=== PATIENT | male | born 1955 | race African-American/Black ===

== ENCOUNTER 2019-03-31 06:00 | Inpatient (IN) ==
[2019-03-26 10:16] LABS: Basophils % 0.2 % (0.0-0.8); Eosinophils % 0.7 % (0.00-10.9); Hematocrit 49.4 VOL% (42.0-52.0); Hemoglobin 16.6 GM/DL (14.0-18.0); Immature Granulocytes % 0.7 %; Immature Granulocytes Absolute 0.03 #; Lymphocytes # 1.3 10*3/uL (1.4-4.0); Lymphocytes % 28.9 % (21.2-54.2); Mean Corpuscular HGB Conc 33.6 GM/DL (32-36); Mean Corpuscular Volume 97.4 FL (87-102); Mean Platelet Volume 9.7 FL (9.6-12.0); Monocytes % 13.5 % (1.7-12.7); Platelet Count 214 T/CUMM (130-400); Red Blood Count 5.07 MC/CUMM (3.8-5.5); Red Cell Distribution Width 14.3 % (9.3-17.3); White Blood Count 4.4 T/CUMM (4-12)
[2019-03-26 10:24] LABS: INR 0.9; PT Patient Result 10.1 SECS; Partial Thromboplastin Time 26.8 SECS (0-40)
[2019-03-26 10:40] LABS: Osmolality,Calculated 275.5 MOS/KG (273-304)
[2019-03-26 11:10] LABS: Apearance,Urine CLEAR (Clear); Bilirubin,Urine Negative (Negative); Blood, Urine Negative (Negative); Glucose,Urine (UA) Negative (Negative); Hyaline Casts,Urine 1 /LPF (0-3); Ketones,Urine 5 mg/dL (Negative); Mucus,Urine Occasional /LPF (Occasional); Nitrite,Urine Negative (Negative); Protein,Urine Negative; RBC,Urine 1 /HPF (0-4); Urine Color Yellow (Yellow); Urine Specific Gravity 1.023 (1.001-1.035)
[~2019-03-31 06:00] MED LIST: SODIUM CHLORIDE 0.9% 1,000 ML IV PRN
[2019-04-09] MEDS ORDERED: DIAZEPAM 5 MG TABLET PO ONE (06:00)
[2019-04-09] MEDS ORDERED: FAMOTIDINE 20 MG TABLET PO ONE (06:00)
[2019-04-09] MEDS ORDERED: ALBUTEROL/IPRATROPIUM 3 ML NEB RESP TX ONE (06:00)
[2019-04-09] MEDS ORDERED: TISSUE ADHESIVE 1 EACH APPLICATOR TOP ONE (06:33)
[2019-04-09] MEDS ORDERED: CEFUROXIME 1,500 MG VIAL ONE (06:43)
[2019-04-09] MEDS ORDERED: FAMOTIDINE 20 MG TABLET ONE (06:43)
[2019-04-09] MEDS ORDERED: DIAZEPAM 5 MG TABLET ONE (06:43)
[2019-04-09] MEDS ORDERED: CEFUROXIME INJ 1,500 MG in SYRINGE 1 EACH IV ONE (06:51)
[2019-04-09] MEDS ORDERED: LACTATED RINGERS 1,000 ML IV SCH (07:00)
[2019-04-09] MEDS: VANCOMYCIN INJ 1,000 MG in SODIUM CHLORIDE 0.9% 250 ML IV SCH ×2 (08:00→21:57)
[2019-04-09 12:18] LABS: Apearance,Urine CLEAR (Clear); Bacteria,Urine Occasional /HPF (Few); Bilirubin,Urine Negative (Negative); Blood, Urine Negative (Negative); Glucose,Urine (UA) Negative (Negative); Hyaline Casts,Urine 3 /LPF (0-3); Ketones,Urine Negative (Negative); Mucus,Urine Occasional /LPF (Occasional); Nitrite,Urine Negative (Negative); Protein,Urine Negative; RBC,Urine 1 /HPF (0-4); Urine Color Yellow (Yellow); Urine Specific Gravity 1.012 (1.001-1.035); Urine Urobilinogen < 2.0 EU/DL (0.2-1.0)
[2019-04-09] MEDS ORDERED: VANCOMYCIN 500 MG VIAL ONE (12:21)
[2019-04-09] MEDS ORDERED: ONDANSETRON 4 MG/2 ML VIAL IV PRN (13:17)
[2019-04-09] MEDS ORDERED: ePHEDrine 50 MG/ML AMP ONE (13:37)
[2019-04-09] MEDS ORDERED: MIDAZOLAM 2 MG/2 ML VIAL ONE (13:37)
[2019-04-09] MEDS ORDERED: SEVOFLURANE 1 UNIT/15 MINUTE INH ONE (13:38)
[2019-04-09] MEDS ORDERED: CALCIUM CHLORIDE 1,000 MG/10 ML VIAL IV ONE (13:38)
[2019-04-09] MEDS ORDERED: NEOSTIGMINE 10 MG/10 ML VIAL ONE (13:39)
[2019-04-09] MEDS ORDERED: ROCURONIUM 100 MG/10 ML VIAL IV ONE (13:39)
[2019-04-09] MEDS ORDERED: PROPOFOL 200 MG/20 ML VIAL IV ONE (13:39)
[2019-04-09] MEDS ORDERED: PHENYLEPHRINE 1 MG/10 ML SYRINGE IV ONE (13:39)
[2019-04-09] MEDS ORDERED: SODIUM CHLORIDE 0.9% 1,000 ML IV ONE (13:40)
[2019-04-09] MEDS ORDERED: PHENYLEPHRINE DRIP 20 MG/250 ML PREMIX IV ONE (13:40)
[2019-04-09] MEDS ORDERED: LACTATED RINGERS 2,000 ML IV ONE (13:40)
[2019-04-09] MEDS ORDERED: ETOMIDATE 40 MG/20 ML VIAL IV ONE (13:44)
[2019-04-09] MEDS ORDERED: HEPARIN/NACL 0.9% 2 UNITS/ML 500 ML IV ONE (13:44)
[2019-04-09 13:49] LABS: Basophils % 0.1 % (0.0-0.8); Hematocrit 46.1 VOL% (42.0-52.0); Hemoglobin 14.7 GM/DL (14.0-18.0); Immature Granulocytes % 0.5 %; Immature Granulocytes Absolute 0.08 #; Lymphocytes # 1.1 10*3/uL (1.4-4.0); Lymphocytes % 6.6 % (21.2-54.2); Mean Corpuscular HGB Conc 31.9 GM/DL (32-36); Mean Corpuscular Volume 98.1 FL (87-102); Mean Platelet Volume 9.4 FL (9.6-12.0); Monocytes % 10.6 % (1.7-12.7); Neutrophils % 82.2 % (38.7-73.9); Platelet Count 212 T/CUMM (130-400); Red Cell Distribution Width 15.6 % (9.3-17.3); White Blood Count 16.1 T/CUMM (4-12)
[2019-04-09] MEDS ORDERED: ALBUMIN 5% 12.5 GM/250 ML VIAL IV ONE (14:07)
[2019-04-09 14:13] LABS: Calcium 8.6 MG/DL (8.5-10.1); Osmolality,Calculated 284.3 MOS/KG (273-304)
[2019-04-09] MEDS ORDERED: SODIUM CHLORIDE 0.9% 1,000 ML IV PRN (14:22)
[2019-04-09] MEDS: ALBUMIN 5% 12.5 GM in PREMIX 1 EACH IV SCH ×2 (14:33→23:11)
[2019-04-09] MEDS: GABAPENTIN 100 MG CAPSULE PO SCH ×2 (14:53→21:57)
[2019-04-09] MEDS: KETOROLAC 15 MG/1 ML VIAL IV SCH ×2 (14:55→20:40)
[2019-04-09] MEDS: ACETAMINOPHEN INJ 1,000 MG in PREMIX 1 EACH IV SCH (18:19)
[2019-04-10] MEDS: KETOROLAC 15 MG/1 ML VIAL IV SCH ×4 (01:40→20:31)
[2019-04-10] MEDS: ACETAMINOPHEN INJ 1,000 MG in PREMIX 1 EACH IV SCH (01:43)
[2019-04-10 04:42] LABS: Basophils % 0.1 % (0.0-0.8); Hematocrit 43.1 VOL% (42.0-52.0); Hemoglobin 14.2 GM/DL (14.0-18.0); Immature Granulocytes % 0.5 %; Immature Granulocytes Absolute 0.05 #; Lymphocytes # 0.9 10*3/uL (1.4-4.0); Lymphocytes % 9.1 % (21.2-54.2); Mean Corpuscular HGB Conc 32.9 GM/DL (32-36); Mean Corpuscular Volume 94.5 FL (87-102); Mean Platelet Volume 9.9 FL (9.6-12.0); Neutrophils % 79.3 % (38.7-73.9); Platelet Count 156 T/CUMM (130-400); Red Blood Count 4.56 MC/CUMM (3.8-5.5); Red Cell Distribution Width 16.2 % (9.3-17.3); White Blood Count 9.4 T/CUMM (4-12)
[2019-04-10 04:59] LABS: Calcium 8.2 MG/DL (8.5-10.1); Osmolality,Calculated 276.7 MOS/KG (273-304)
[2019-04-10] MEDS: VANCOMYCIN INJ 1,000 MG in SODIUM CHLORIDE 0.9% 250 ML IV SCH ×3 (06:44→20:33)
[2019-04-10] MEDS: ENOXAPARIN 40 MG/0.4 ML SYRINGE SUBCUT SCH (07:55)
[2019-04-10] MEDS: ACETAMINOPHEN 500 MG TABLET PO SCH ×3 (07:55→18:26)
[2019-04-10] MEDS: ALBUMIN 5% 12.5 GM in PREMIX 1 EACH IV SCH ×2 (08:00→14:00)
[2019-04-10] MEDS: CELECOXIB 200 MG CAPSULE PO SCH ×2 (09:20→20:33)
[2019-04-10] MEDS: PANTOPRAZOLE 40 MG VIAL IV SCH (09:20)
[2019-04-10] MEDS: GABAPENTIN 100 MG CAPSULE PO SCH ×3 (09:20→20:32)
[2019-04-10] MEDS ORDERED: MELOXICAM 7.5 MG TABLET PO PRN (14:12)
[2019-04-10] MEDS ORDERED: CETIRIZINE 10 MG TABLET PO PRN (14:12)
[2019-04-10] MEDS: traMADol 50 MG TABLET PO PRN (15:20)
[2019-04-10] MEDS: ALBUTEROL 2.5 MG/3 ML NEB RESP TX SCH (20:01)
[2019-04-11] MEDS: ACETAMINOPHEN 500 MG TABLET PO SCH ×3 (01:00→14:27)
[2019-04-11] MEDS: KETOROLAC 15 MG/1 ML VIAL IV SCH ×2 (01:00→09:44)
[2019-04-11 05:05] LABS: Basophils % 0.2 % (0.0-0.8); Eosinophils % 0.1 % (0.00-10.9); Hematocrit 40.6 VOL% (42.0-52.0); Hemoglobin 13.2 GM/DL (14.0-18.0); Immature Granulocytes % 0.5 %; Immature Granulocytes Absolute 0.06 #; Lymphocytes # 0.9 10*3/uL (1.4-4.0); Lymphocytes % 8.3 % (21.2-54.2); Mean Corpuscular HGB Conc 32.5 GM/DL (32-36); Mean Corpuscular Volume 96.9 FL (87-102); Mean Platelet Volume 10.3 FL (9.6-12.0); Monocytes % 8.3 % (1.7-12.7); Neutrophils % 82.6 % (38.7-73.9); Platelet Count 152 T/CUMM (130-400); Red Blood Count 4.19 MC/CUMM (3.8-5.5)
[2019-04-11 05:39] LABS: Platelet Estimate Decreased
[2019-04-11 05:44] LABS: Calcium 8.2 MG/DL (8.5-10.1); Osmolality,Calculated 275.7 MOS/KG (273-304)
[2019-04-11] MEDS: ENOXAPARIN 40 MG/0.4 ML SYRINGE SUBCUT SCH (06:42)
[2019-04-11] MEDS: ALBUTEROL 2.5 MG/3 ML NEB RESP TX SCH (07:19)
[2019-04-11] MEDS ORDERED: ALBUTEROL/IPRATROPIUM 3 ML NEB RESP TX SCH (09:00)
[2019-04-11] MEDS: PANTOPRAZOLE 40 MG VIAL IV SCH (09:45)
[2019-04-11] MEDS: OMEGA 3 ACID ETHYL ESTERS 1 GM CAPSULE PO SCH (09:45)
[2019-04-11] MEDS: FAMOTIDINE 20 MG TABLET PO SCH ×2 (09:46→20:59)
[2019-04-11] MEDS: CELECOXIB 200 MG CAPSULE PO SCH ×2 (09:46→20:59)
[2019-04-11] MEDS: ASPIRIN EC 81 MG TABLET PO SCH (09:46)
[2019-04-11] MEDS: GABAPENTIN 100 MG CAPSULE PO SCH ×3 (09:46→20:59)
[2019-04-11] MEDS ORDERED: ACETYLCYSTEINE 20% 800 MG/4 ML VIAL RESP TX ONE (09:58)
[2019-04-11] MEDS ORDERED: KETOROLAC 15 MG/1 ML VIAL IV SCH (10:00)
[2019-04-11] MEDS: ALBUTEROL/IPRATROPIUM 3 ML NEB RESP TX SCH ×3 (11:10→19:25)
[2019-04-11] MEDS: LEVALBUTEROL 0.31 MG/3 ML NEB RESP TX SCH ×2 (11:10→15:15)
[2019-04-11] MEDS: FLUTICASONE 50 MCG NASAL SPRAY 16 GM BOTTLE BOTH NARES SCH (11:28)
[2019-04-11] MEDS ORDERED: ACETAMINOPHEN 500 MG TABLET PO PRN (14:26)
[2019-04-12] MEDS: ALBUTEROL/IPRATROPIUM 3 ML NEB RESP TX SCH ×4 (01:21→19:17)
[2019-04-12] MEDS: LEVALBUTEROL 0.31 MG/3 ML NEB RESP TX SCH ×6 (02:46→19:17)
[2019-04-12 05:15] LABS: Basophils % 0.1 % (0.0-0.8); Eosinophils # 0.1 10*3/uL (0.0-0.87); Eosinophils % 0.5 % (0.00-10.9); Hematocrit 39.5 VOL% (42.0-52.0); Hemoglobin 12.7 GM/DL (14.0-18.0); Immature Granulocytes % 0.6 %; Immature Granulocytes Absolute 0.07 #; Lymphocytes % 8.8 % (21.2-54.2); Mean Corpuscular HGB Conc 32.2 GM/DL (32-36); Mean Corpuscular Volume 96.8 FL (87-102); Mean Platelet Volume 10.6 FL (9.6-12.0); Monocytes % 10.5 % (1.7-12.7); Neutrophils % 79.5 % (38.7-73.9); Platelet Count 156 T/CUMM (130-400); Red Blood Count 4.08 MC/CUMM (3.8-5.5); Red Cell Distribution Width 15.7 % (9.3-17.3); White Blood Count 10.8 T/CUMM (4-12)
[2019-04-12 05:26] LABS: Calcium 8.5 MG/DL (8.5-10.1); Osmolality,Calculated 273.8 MOS/KG (273-304)
[2019-04-12] MEDS: CELECOXIB 200 MG CAPSULE PO SCH ×2 (08:08→20:22)
[2019-04-12] MEDS: GABAPENTIN 100 MG CAPSULE PO SCH ×3 (08:08→20:22)
[2019-04-12] MEDS: ASPIRIN EC 81 MG TABLET PO SCH (08:08)
[2019-04-12] MEDS: OMEGA 3 ACID ETHYL ESTERS 1 GM CAPSULE PO SCH (08:08)
[2019-04-12] MEDS: traMADol 50 MG TABLET PO PRN (08:08)
[2019-04-12] MEDS: PANTOPRAZOLE 40 MG VIAL IV SCH (08:09)
[2019-04-12] MEDS: FAMOTIDINE 20 MG TABLET PO SCH ×2 (08:09→20:22)
[2019-04-12] MEDS: ENOXAPARIN 40 MG/0.4 ML SYRINGE SUBCUT SCH (08:10)
[2019-04-12] MEDS: FLUTICASONE 50 MCG NASAL SPRAY 16 GM BOTTLE BOTH NARES SCH (09:01)
[2019-04-13] MEDS: LEVALBUTEROL 0.31 MG/3 ML NEB RESP TX SCH ×5 (00:48→15:00)
[2019-04-13] MEDS: ALBUTEROL/IPRATROPIUM 3 ML NEB RESP TX SCH ×2 (00:48→19:14)
[2019-04-13] MEDS: ENOXAPARIN 40 MG/0.4 ML SYRINGE SUBCUT SCH (08:47)
[2019-04-13] MEDS: ASPIRIN EC 81 MG TABLET PO SCH (08:49)
[2019-04-13] MEDS: CELECOXIB 200 MG CAPSULE PO SCH ×2 (09:29→21:11)
[2019-04-13] MEDS: FLUTICASONE 50 MCG NASAL SPRAY 16 GM BOTTLE BOTH NARES SCH (09:29)
[2019-04-13] MEDS: OMEGA 3 ACID ETHYL ESTERS 1 GM CAPSULE PO SCH (09:29)
[2019-04-13] MEDS: FAMOTIDINE 20 MG TABLET PO SCH ×2 (09:30→21:11)
[2019-04-13] MEDS: GABAPENTIN 100 MG CAPSULE PO SCH ×3 (09:30→21:11)
[2019-04-13] MEDS: PANTOPRAZOLE 40 MG VIAL IV SCH (10:20)
[2019-04-14] MEDS: ALBUTEROL/IPRATROPIUM 3 ML NEB RESP TX SCH ×4 (00:20→19:36)
[2019-04-14] MEDS ORDERED: MEPERIDINE 50 MG/1 ML VIAL IM ONE (07:00)
[2019-04-14] MEDS ORDERED: PROMETHAZINE 25 MG/1 ML VIAL IM ONE (07:00)
[2019-04-14] MEDS ORDERED: MIDAZOLAM 2 MG/2 ML VIAL ONE (07:29)
[2019-04-14] MEDS ORDERED: MIDAZOLAM 2 MG/2 ML VIAL IV ONE (07:30)
[2019-04-14] MEDS ORDERED: LIDOCAINE 2% 20 ML VIAL RESP TX ONE (07:30)
[2019-04-14] MEDS ORDERED: LIDOCAINE 2% VISCOUS 100 ML BOTTLE SWISH/SPIT ONE (07:30)
[2019-04-14] MEDS ORDERED: LIDOCAINE 1% 20 ML VIAL MISC INJ ONE (07:30)
[2019-04-14] MEDS: ASPIRIN EC 81 MG TABLET PO SCH (10:08)
[2019-04-14] MEDS: PANTOPRAZOLE 40 MG VIAL IV SCH (10:08)
[2019-04-14] MEDS: OMEGA 3 ACID ETHYL ESTERS 1 GM CAPSULE PO SCH (10:08)
[2019-04-14] MEDS: FAMOTIDINE 20 MG TABLET PO SCH ×2 (10:08→20:33)
[2019-04-14] MEDS: CELECOXIB 200 MG CAPSULE PO SCH ×2 (10:08→20:33)
[2019-04-14] MEDS: GABAPENTIN 100 MG CAPSULE PO SCH ×3 (10:08→20:33)
[2019-04-14] MEDS: ENOXAPARIN 40 MG/0.4 ML SYRINGE SUBCUT SCH (10:12)
[2019-04-14] MEDS: FLUTICASONE 50 MCG NASAL SPRAY 16 GM BOTTLE BOTH NARES SCH (10:14)
[2019-04-15] MEDS: ALBUTEROL/IPRATROPIUM 3 ML NEB RESP TX SCH ×4 (00:17→18:58)
[2019-04-15] MEDS: ENOXAPARIN 40 MG/0.4 ML SYRINGE SUBCUT SCH (11:05)
[2019-04-15] MEDS: ASPIRIN EC 81 MG TABLET PO SCH (11:06)
[2019-04-15] MEDS: DOCUSATE SODIUM 100 MG CAPSULE PO SCH ×2 (11:06→20:56)
[2019-04-15] MEDS: FLUTICASONE 50 MCG NASAL SPRAY 16 GM BOTTLE BOTH NARES SCH (11:06)
[2019-04-15] MEDS: CELECOXIB 200 MG CAPSULE PO SCH ×2 (11:06→20:56)
[2019-04-15] MEDS: FAMOTIDINE 20 MG TABLET PO SCH ×2 (11:07→20:56)
[2019-04-15] MEDS: BISACODYL 5 MG TABLET PO PRN (11:07)
[2019-04-15] MEDS: OMEGA 3 ACID ETHYL ESTERS 1 GM CAPSULE PO SCH (11:07)
[2019-04-15] MEDS: GABAPENTIN 100 MG CAPSULE PO SCH ×3 (11:07→20:56)
[2019-04-15] MEDS: PANTOPRAZOLE 40 MG VIAL IV SCH (11:12)
[2019-04-15] MEDS: traMADol 50 MG TABLET PO PRN (17:04)
[2019-04-16] MEDS: ALBUTEROL/IPRATROPIUM 3 ML NEB RESP TX SCH ×4 (00:24→19:49)
[2019-04-16] MEDS: ASPIRIN EC 81 MG TABLET PO SCH (08:09)
[2019-04-16] MEDS: ENOXAPARIN 40 MG/0.4 ML SYRINGE SUBCUT SCH (08:09)
[2019-04-16] MEDS: FLUTICASONE 50 MCG NASAL SPRAY 16 GM BOTTLE BOTH NARES SCH (08:10)
[2019-04-16] MEDS: OMEGA 3 ACID ETHYL ESTERS 1 GM CAPSULE PO SCH (08:10)
[2019-04-16] MEDS: GABAPENTIN 100 MG CAPSULE PO SCH ×3 (08:10→20:52)
[2019-04-16] MEDS: CELECOXIB 200 MG CAPSULE PO SCH ×2 (08:10→20:52)
[2019-04-16] MEDS: DOCUSATE SODIUM 100 MG CAPSULE PO SCH ×2 (08:10→20:52)
[2019-04-16] MEDS: FAMOTIDINE 20 MG TABLET PO SCH ×2 (08:11→20:52)
[2019-04-16] MEDS: PANTOPRAZOLE 40 MG VIAL IV SCH (08:14)
[2019-04-16] MEDS: BISACODYL 5 MG TABLET PO PRN (08:34)
[2019-04-16] MEDS: SULFAMETHOX/TRIMETHOPRIM 800-160 MG TABLET PO SCH ×2 (11:37→20:55)
[2019-04-17] MEDS: ALBUTEROL/IPRATROPIUM 3 ML NEB RESP TX SCH ×4 (00:30→20:50)
[2019-04-17 05:10] LABS: Basophils % 0.3 % (0.0-0.8); Eosinophils # 0.1 10*3/uL (0.0-0.87); Eosinophils % 1.6 % (0.00-10.9); Hematocrit 39.1 VOL% (42.0-52.0); Hemoglobin 12.7 GM/DL (14.0-18.0); Lymphocytes % 13.5 % (21.2-54.2); Mean Corpuscular HGB Conc 32.5 GM/DL (32-36); Mean Corpuscular Volume 96.8 FL (87-102); Mean Platelet Volume 9.7 FL (9.6-12.0); Monocytes % 11.2 % (1.7-12.7); Neutrophils % 69.4 % (38.7-73.9); Platelet Count 298 T/CUMM (130-400); Red Blood Count 4.04 MC/CUMM (3.8-5.5); Red Cell Distribution Width 14.6 % (9.3-17.3); White Blood Count 7.5 T/CUMM (4-12)
[2019-04-17] MEDS: ENOXAPARIN 40 MG/0.4 ML SYRINGE SUBCUT SCH (09:04)
[2019-04-17] MEDS: ASPIRIN EC 81 MG TABLET PO SCH (09:05)
[2019-04-17] MEDS: DOCUSATE SODIUM 100 MG CAPSULE PO SCH ×2 (09:05→20:03)
[2019-04-17] MEDS: SULFAMETHOX/TRIMETHOPRIM 800-160 MG TABLET PO SCH ×2 (09:05→20:02)
[2019-04-17] MEDS: CELECOXIB 200 MG CAPSULE PO SCH ×2 (09:05→20:02)
[2019-04-17] MEDS: GABAPENTIN 100 MG CAPSULE PO SCH ×3 (09:06→20:03)
[2019-04-17] MEDS: OMEGA 3 ACID ETHYL ESTERS 1 GM CAPSULE PO SCH (09:06)
[2019-04-17] MEDS: FLUTICASONE 50 MCG NASAL SPRAY 16 GM BOTTLE BOTH NARES SCH (09:06)
[2019-04-17] MEDS: FAMOTIDINE 20 MG TABLET PO SCH ×2 (09:06→20:03)
[2019-04-17] MEDS: BISACODYL 5 MG TABLET PO PRN (09:08)
[2019-04-17] MEDS: PANTOPRAZOLE 40 MG VIAL IV SCH (09:12)
[2019-04-18] MEDS: ALBUTEROL/IPRATROPIUM 3 ML NEB RESP TX SCH ×4 (00:14→19:10)
[2019-04-18] MEDS ORDERED: AMIODARONE INJ 150 MG in DEXTROSE 5% 100 ML IV ONE (01:23)
[2019-04-18] MEDS ORDERED: AMIODARONE INJ 450 MG in DEXTROSE 5% 241 ML IV SCH (01:30)
[2019-04-18 04:20] LABS: Calcium 8.7 MG/DL (8.5-10.1); Osmolality,Calculated 272.8 MOS/KG (273-304)
[2019-04-18] MEDS: ASPIRIN EC 81 MG TABLET PO SCH (09:29)
[2019-04-18] MEDS: OMEGA 3 ACID ETHYL ESTERS 1 GM CAPSULE PO SCH (09:29)
[2019-04-18] MEDS: PANTOPRAZOLE 40 MG VIAL IV SCH (09:29)
[2019-04-18] MEDS: ENOXAPARIN 40 MG/0.4 ML SYRINGE SUBCUT SCH (09:29)
[2019-04-18] MEDS: DOCUSATE SODIUM 100 MG CAPSULE PO SCH ×2 (09:29→20:00)
[2019-04-18] MEDS: GABAPENTIN 100 MG CAPSULE PO SCH ×3 (09:29→20:00)
[2019-04-18] MEDS: SULFAMETHOX/TRIMETHOPRIM 800-160 MG TABLET PO SCH ×2 (09:30→20:00)
[2019-04-18] MEDS: FAMOTIDINE 20 MG TABLET PO SCH ×2 (09:30→20:00)
[2019-04-18] MEDS: CELECOXIB 200 MG CAPSULE PO SCH ×2 (09:30→20:00)
[2019-04-18] MEDS: FLUTICASONE 50 MCG NASAL SPRAY 16 GM BOTTLE BOTH NARES SCH (09:34)
[2019-04-18] MEDS: METOPROLOL TARTRATE 25 MG TABLET PO SCH ×2 (11:16→20:00)
[2019-04-19] MEDS: ALBUTEROL/IPRATROPIUM 3 ML NEB RESP TX SCH ×4 (01:45→19:51)
[2019-04-19] MEDS: ENOXAPARIN 40 MG/0.4 ML SYRINGE SUBCUT SCH (08:47)
[2019-04-19] MEDS: CELECOXIB 200 MG CAPSULE PO SCH ×2 (08:48→20:31)
[2019-04-19] MEDS: FAMOTIDINE 20 MG TABLET PO SCH ×2 (08:48→20:31)
[2019-04-19] MEDS: DOCUSATE SODIUM 100 MG CAPSULE PO SCH ×2 (08:48→20:31)
[2019-04-19] MEDS: GABAPENTIN 100 MG CAPSULE PO SCH ×3 (08:48→20:31)
[2019-04-19] MEDS: SULFAMETHOX/TRIMETHOPRIM 800-160 MG TABLET PO SCH ×2 (08:48→20:31)
[2019-04-19] MEDS: OMEGA 3 ACID ETHYL ESTERS 1 GM CAPSULE PO SCH (08:48)
[2019-04-19] MEDS: ASPIRIN EC 81 MG TABLET PO SCH (08:48)
[2019-04-19] MEDS: METOPROLOL TARTRATE 25 MG TABLET PO SCH ×2 (08:48→20:31)
[2019-04-19] MEDS: FLUTICASONE 50 MCG NASAL SPRAY 16 GM BOTTLE BOTH NARES SCH (08:49)
[2019-04-19] MEDS: PANTOPRAZOLE 40 MG VIAL IV SCH (08:51)
[2019-04-19] MEDS: amLODIPine 5 MG TABLET PO SCH (08:51)
[2019-04-20] MEDS: ALBUTEROL/IPRATROPIUM 3 ML NEB RESP TX SCH ×4 (01:52→19:31)
[2019-04-20] MEDS: SULFAMETHOX/TRIMETHOPRIM 800-160 MG TABLET PO SCH ×2 (10:02→21:20)
[2019-04-20] MEDS: ASPIRIN EC 81 MG TABLET PO SCH (10:02)
[2019-04-20] MEDS: DOCUSATE SODIUM 100 MG CAPSULE PO SCH ×2 (10:02→21:21)
[2019-04-20] MEDS: ENOXAPARIN 40 MG/0.4 ML SYRINGE SUBCUT SCH (10:02)
[2019-04-20] MEDS: METOPROLOL TARTRATE 25 MG TABLET PO SCH ×2 (10:02→21:20)
[2019-04-20] MEDS: amLODIPine 5 MG TABLET PO SCH (10:03)
[2019-04-20] MEDS: OMEGA 3 ACID ETHYL ESTERS 1 GM CAPSULE PO SCH (10:03)
[2019-04-20] MEDS: FLUTICASONE 50 MCG NASAL SPRAY 16 GM BOTTLE BOTH NARES SCH (10:04)
[2019-04-20] MEDS: CELECOXIB 200 MG CAPSULE PO SCH ×2 (10:04→21:20)
[2019-04-20] MEDS: FAMOTIDINE 20 MG TABLET PO SCH ×2 (10:04→21:20)
[2019-04-20] MEDS: GABAPENTIN 100 MG CAPSULE PO SCH ×3 (10:04→21:19)
[2019-04-20] MEDS: PANTOPRAZOLE 40 MG VIAL IV SCH (10:04)
[2019-04-21] MEDS: ALBUTEROL/IPRATROPIUM 3 ML NEB RESP TX SCH ×4 (00:47→19:12)
[2019-04-21] MEDS: ENOXAPARIN 40 MG/0.4 ML SYRINGE SUBCUT SCH (08:00)
[2019-04-21] MEDS: CELECOXIB 200 MG CAPSULE PO SCH ×2 (08:44→21:43)
[2019-04-21] MEDS: METOPROLOL TARTRATE 25 MG TABLET PO SCH ×2 (08:44→21:43)
[2019-04-21] MEDS: FAMOTIDINE 20 MG TABLET PO SCH ×2 (08:45→21:44)
[2019-04-21] MEDS: OMEGA 3 ACID ETHYL ESTERS 1 GM CAPSULE PO SCH (08:45)
[2019-04-21] MEDS: GABAPENTIN 100 MG CAPSULE PO SCH ×3 (08:45→21:43)
[2019-04-21] MEDS: amLODIPine 5 MG TABLET PO SCH (08:45)
[2019-04-21] MEDS: SULFAMETHOX/TRIMETHOPRIM 800-160 MG TABLET PO SCH ×2 (08:45→21:44)
[2019-04-21] MEDS: DOCUSATE SODIUM 100 MG CAPSULE PO SCH ×2 (08:45→22:04)
[2019-04-21] MEDS: ASPIRIN EC 81 MG TABLET PO SCH (08:45)
[2019-04-21] MEDS: FLUTICASONE 50 MCG NASAL SPRAY 16 GM BOTTLE BOTH NARES SCH (08:46)
[2019-04-21] MEDS: PANTOPRAZOLE 40 MG VIAL IV SCH (08:46)
[2019-04-22] MEDS: ALBUTEROL/IPRATROPIUM 3 ML NEB RESP TX SCH ×4 (00:18→19:32)
[2019-04-22] MEDS: OMEGA 3 ACID ETHYL ESTERS 1 GM CAPSULE PO SCH (09:13)
[2019-04-22] MEDS: ENOXAPARIN 40 MG/0.4 ML SYRINGE SUBCUT SCH (09:13)
[2019-04-22] MEDS: amLODIPine 5 MG TABLET PO SCH (09:13)
[2019-04-22] MEDS: FAMOTIDINE 20 MG TABLET PO SCH ×2 (09:14→21:25)
[2019-04-22] MEDS: BISACODYL 5 MG TABLET PO PRN ×2 (09:14→21:24)
[2019-04-22] MEDS: CELECOXIB 200 MG CAPSULE PO SCH ×2 (09:14→21:24)
[2019-04-22] MEDS: SULFAMETHOX/TRIMETHOPRIM 800-160 MG TABLET PO SCH ×2 (09:14→21:24)
[2019-04-22] MEDS: GABAPENTIN 100 MG CAPSULE PO SCH ×3 (09:14→21:25)
[2019-04-22] MEDS: ASPIRIN EC 81 MG TABLET PO SCH (09:14)
[2019-04-22] MEDS: METOPROLOL TARTRATE 25 MG TABLET PO SCH ×2 (09:14→21:25)
[2019-04-22] MEDS: DOCUSATE SODIUM 100 MG CAPSULE PO SCH ×2 (09:17→21:26)
[2019-04-22] MEDS: FLUTICASONE 50 MCG NASAL SPRAY 16 GM BOTTLE BOTH NARES SCH (09:18)
[2019-04-22] MEDS: PANTOPRAZOLE 40 MG VIAL IV SCH (09:30)
[2019-04-23] MEDS: ALBUTEROL/IPRATROPIUM 3 ML NEB RESP TX SCH ×3 (00:10→12:45)
[2019-04-23] MEDS: OMEGA 3 ACID ETHYL ESTERS 1 GM CAPSULE PO SCH (08:03)
[2019-04-23] MEDS: ENOXAPARIN 40 MG/0.4 ML SYRINGE SUBCUT SCH (08:03)
[2019-04-23] MEDS: DOCUSATE SODIUM 100 MG CAPSULE PO SCH (08:04)
[2019-04-23] MEDS: CELECOXIB 200 MG CAPSULE PO SCH (08:04)
[2019-04-23] MEDS: GABAPENTIN 100 MG CAPSULE PO SCH (08:04)
[2019-04-23] MEDS: FAMOTIDINE 20 MG TABLET PO SCH (08:04)
[2019-04-23] MEDS: ASPIRIN EC 81 MG TABLET PO SCH (08:04)
[2019-04-23] MEDS: SULFAMETHOX/TRIMETHOPRIM 800-160 MG TABLET PO SCH (08:04)
[2019-04-23] MEDS: PANTOPRAZOLE 40 MG VIAL IV SCH (08:06)
[2019-04-23] MEDS: METOPROLOL TARTRATE 25 MG TABLET PO SCH (08:39)
[2019-04-23] MEDS: amLODIPine 5 MG TABLET PO SCH (08:39)
[2019-04-23] MEDS: FLUTICASONE 50 MCG NASAL SPRAY 16 GM BOTTLE BOTH NARES SCH (12:15)
[2019-04-23 15:43] VITALS: BP 111/65
== END 2019-04-23 15:47 | disposition swing bed (61) | DRG 120 ==
LOC: N.SDSINP 04-09 05:18 → N.ICU 04-09 14:14 → N.TELES 04-10 17:17
PROVIDERS: ADMIT Thoracic Surgery (Cardiothoracic Vascular Surgery); ATTEND Thoracic Surgery (Cardiothoracic Vascular Surgery)